=== PATIENT | male | born 1990 | race Caucasian/White ===

== ENCOUNTER 2016-08-20 20:57 | Emergency (ER) | payer SELFPAY ==
[~2016-08-20] VITALS: Ht 180.3 cm; Wt 83.1 kg
[2016-08-20 21:11] VITALS: Ht 180.3 cm; Wt 83.1 kg
[2016-08-20] MEDS ORDERED: LIDOCAINE/EPINEPH/TETRACAINE 1 EA SYR EXT STA (21:47)
[2016-08-20 21:51] VITALS: TEMP 36.9; O2SAT 97
[2016-08-20] MEDS ORDERED: B-CO1CAP17 PO (21:54)
[2016-08-20] MEDS ORDERED: IBUP-1277 PO (21:54)
[2016-08-20] MEDS ORDERED: AMPICILLIN/SULBACTAM SOD INJ 3,000 MG in SODIUM CHLORIDE 0.9% 100ML 100 ML IV ONE (22:00)
[2016-08-20 22:24] LABS: PARTIAL THROMBOPLASTIN RATIO 0.9; PROTHROMBIN TIME (PATIENT) 10.4 SECONDS (9.0-12.0)
[2016-08-20 22:33] LABS: BASO % 0.7 %; BASO ABS # 0.07 K/uL (0-0.2); COMPLETE YES; EOS % 0.3 %; HEMATOCRIT 43.8 % (42-52); IG% 0.2 %; LYMPH ABS # 0.98 K/uL (1.2-3.4); MEAN CELL VOLUME 94.4 fL (80-100); MEAN CORPUSCULAR HEMOGLOBIN 34.3 pg (25-34); MEAN CORPUSCULAR HGB CONC 36.3 g/dl (32-36); MEAN PLATELET VOLUME 11.8 fL (7.4-10.4); MONO % 5.1 %; NEUT % 83.7 %; PLATELET COUNT 100 K/uL (130-400); RED BLOOD COUNT 4.64 M/uL (4.7-6.1); WHITE BLOOD COUNT 9.84 K/uL (4.8-10.8)
[2016-08-20 22:38] LABS: BUN/CREATININE RATIO 9.5 (10-20); CALCIUM 9.3 mg/dl (8.5-10.1); CREATININE 0.91 mg/dl (0.60-1.40); MAGNESIUM 2.2 mg/dl (1.8-2.4); POTASSIUM 4.2 mmol/L (3.5-5.1)
[2016-08-20 22:40] LABS: URINE APPEARANCE CLEAR (CLEAR); URINE COLOR DK YELLOW; URINE NITRITE NEG (NEG); URINE PH >= 9.0 (4.5-7.5); URINE SPECIFIC GRAVITY 1.027 (1.000-1.030); UROBILINOGEN NEG (NEG)
[2016-08-20 22:42] LABS: MANUAL MICROSCOPIC REQUIRED? NO; REVIEW REQ? NO
[2016-08-20 22:44] LABS: SULFASALICYLIC ACID POS (NEG); URINE BILIRUBIN NEG (NEG)
[2016-08-20 22:48] LABS: PHOSPHORUS 1.9 mg/dl (2.5-4.9); THYROID STIMULATING HORMONE 0.87 uIu/ml (0.300-4.500)
--- NOTE | 2016-08-20 22:49 | DIAGNOSTIC IMAGING REPORT ---
CT OF THE HEAD WITHOUT CONTRAST CLINICAL HISTORY: Seizure. Right facial injury COMPARISON STUDY: No previous studies for comparison. TECHNIQUE: Helical axial images of the head were obtained without IV contrast. Automated exposure control was utilized for the study. FINDINGS: No acute intracranial hemorrhage, midline shift or mass effect is present. Ventricular system is normal. Basilar cisterns are patent. There are no extra-axial collections. 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 There are no findings to suggest acute dural sinus thrombosis or acute territorial infarct. There is no calvarial fracture. IMPRESSION: 1. No acute intracranial findings. 2. No calvarial fracture. Electronically signed by: Celso Hallman M.D. 08/20/2016 10:47 PM Dictated Date/Time: 08/20/2016 10:45 PM
--- NOTE | 2016-08-20 22:56 | DIAGNOSTIC IMAGING REPORT ---
MAXILLOFACIAL CT WITHOUT CONTRAST CLINICAL HISTORY: Seizure, facial injury-right side. COMPARISON STUDY: None. TECHNIQUE: A maxillofacial CT was performed without IV contrast. Coronal and sagittal reformats were viewed. FINDINGS: Alignment of the temporomandibular joints is anatomic. The medial left maxillary incisor is absent. There is gas and suspected bone fragments within the socket as well as a fracture of the adjacent maxilla. An overlying deep laceration is noted with soft tissue gas. No additional facial fractures are identified. Globes are intact. There is no retrobulbar hematoma. There is mild mucosal thickening of the sinuses. There is no fracture within visualized portions of the upper cervical spine. IMPRESSION: Absent medial left maxillary incisor with suspected bone fragments within the tooth socket and a fracture of the adjacent maxilla. No additional facial fractures. Overlying deep laceration with soft tissue gas. Electronically signed by: Celso Hallman M.D. 08/20/2016 10:55 PM Dictated Date/Time: 08/20/2016 10:47 PM
[2016-08-20 23:01] LABS: BENZODIAZEPINE, URINE NEG (NEG); COCAINE,URINE POS (NEG); PHENCYCLIDINE, URINE NEG (NEG)
[2016-08-20] MEDS ORDERED: AMOXICIL/CLAVU 875MG HOME PACK PO ONE (23:30)
[2016-08-21] MEDS ORDERED: LIDOCAINE HCL 1% 20 ML VIAL ONE (00:03)
[2016-08-21] MEDS ORDERED: LORAZEPAM 2 MG/ML 1 ML VIAL ONE (00:19)
[2016-08-21] MEDS ORDERED: LORAZEPAM 2 MG/ML 1 ML VIAL IV STA (00:26)
[2016-08-21] MEDS ORDERED: SODIUM CHLORIDE 0.9% 1000ML 1,000 ML IV STA ×3 (00:26→01:56)
[2016-08-21] MEDS ORDERED: LEVETIRACETAM IV 1,000 MG in DEXTROSE 5% 100ML 100 ML IV ONE (00:30)
[2016-08-21] MEDS ORDERED: SODIUM PHOSPHATE 3 MMOL/1 ML INFUSION IV STA (00:37)
--- NOTE | 2016-08-21 01:03 | EMERGENCY ROOM VISIT NOTE ---
ED Visit Note First contact with patient: 21:38 The patient was seen and examined with Carina Dunn PA-C. I agree with the history, physical and findings. Please see the note for disposition and details. The patient had a recurrent seizure in the emergency department. Consultation was made with OMFS and neurology. The patient was started on IV Keppra after a dose of IV Ativan. The patient's phosphorus is low and this is being repleted. He is going to be admitted to the hospital. Consultation was made with internal medicine. Repeat head CT performed.
[2016-08-21] MEDS ORDERED: SODIUM PHOSPHATE INJ 24 MMOL in SODIUM CHLORIDE 0.9% 500ML 500 ML IV ONE (01:15)
[2016-08-21] MEDS ORDERED: AMPICILLIN/SULBACTAM SOD INJ 3,000 MG in SODIUM CHLORIDE 0.9% 100ML 100 ML IV SCH (01:15)
[2016-08-21] MEDS ORDERED: ACETAMINOPHEN 325 MG TAB PO PRN (01:15)
--- NOTE | 2016-08-21 01:58 | EMERGENCY ROOM VISIT NOTE ---
History First contact with patient: 21:38 Chief Complaint: SEIZURE Stated Complaint: SEIZURE BUSTED LIP MISSING TOOTH Nursing Triage Summary: see triage note. last sz was 6 years ago and 10 years before that History of Present Illness The patient is a 26 year old male who presents to the Emergency Room with complaints of seizure tonight. Patient was moving band equipment tonight. He does not recall the events. He's had 3 other seizures throughout his lifetime. He had a negative EEG when he was 10 per pt. Last seizure was several months ago. He is not on antiepileptic medications. He does not have a neurologist. Patient complains of left facial pain, dental pain with dental extraction, mouth lacerations. Pain 5 out of 10. Worse with palpation and better with rest. Patient denies drug use. No alcohol tonight. Patient states he currently drives. Patient denies chest pain, dyspnea, neck pain, abdominal pain , numbness, tingling, eye pain, lightheadedness or dizziness. He brought his tooth with him. Review of Systems See HPI for pertinent positives & negatives. A total of 10 systems reviewed and were otherwise negative. Past Medical/Surgical History Medical Problems: (1) Facial bone fracture (2) Observed seizure-like activity Social History Smoking Status: Current Every Day Smoker Alcohol Use: occasionally Drug Use: cocaine Marital Status: single Housing Status: lives with family Occupation Status: employed Current/Historical Medications Scheduled Ibuprofen (Advil), 400 MG PO PRN UD Vitamin B Cmplx/Vitc/Folic Ac (Nephrocaps), 1 CAP PO DAILY Allergies Coded Allergies: No Known Allergies (Unverified , 08/20/16) Physical Exam Vital Signs Date Time Temp Pulse Resp B/P (MAP) Pulse Ox O2 Delivery O2 Flow Rate FiO2 08/20/16 22:45 94 08/20/16 21:51 97 Room Air 08/20/16 21:51 36.9 98 18 146/93 97 Room Air 08/20/16 21:51 97 Room Air 08/20/16 21:11 36.9 98 18 146/93 97 Room Air Physical Exam PHYSICAL EXAM: VITALS: Vitals are noted on the nurse's note and reviewed by myself. Vital signs stable. GENERAL: Pleasant male answering questions appropriately, in no acute distress, nondiaphoretic, well-developed well-nourished. SKIN: Left facial contusion with abrasion The rest of the skin was without obvious lacerations or abrasions. Capillary reflex less than 2 seconds. HEAD: Normocephalic atraumatic. EARS: External auditory canals clear, tympanic membranes pearly choi without erythema or effusion bilaterally. No hemotympanums. No judge sign. No mastoid tenderness. EYES: Pupils equal round and reactive to light and accommodation. Conjunctivae without injection, sclerae without icterus. Extraocular movements intact. NOSE: Patent, turbinates without inflammation or discharge. No sinus tenderness. No septal hematoma or bleeding. FACE: Left facial bone tenderness. Full range of motion of the jaw without tenderness. MOUTH: Mucous membranes moist. Pharynx without erythema or exudate. Uvula midline. Airway patent. Tongue does not deviate. Dental exam: Left upper maxillary incisor completely missing with left upper lip and bucca mucosa extensive lacerations and lower lip with laceration overall dental hygiene is fair. NECK: Supple without nuchal rigidity. Cervical spine is nontender. Full range of motion of the neck without tenderness. No JVD. HEART: Regular rate and rhythm without murmurs gallops or rubs. LUNGS: Clear to auscultation bilaterally without wheezes, rales or rhonchi. No dullness to percussion. No retractions or accessory muscle use. No chest wall tenderness. ABDOMEN: Positive bowel sounds x 4. Normal tympanic percussion. Soft, nontender, without masses or organomegaly. No guarding or rebound tenderness. MUSCULOSKELETAL: No tenderness of the thoracic or lumbar spine. No tenderness with pelvic rocking. Full range of motion without tenderness to palpation in all extremities. Normal gait. Strength 5/5 throughout. Peripheral pulses 2+. NEURO: Patient was alert and oriented to person place and time. Normal Mini- Mental status exam. Normal sensation to light and sharp touch. Negative Romberg and pronator drift. Cerebellar function intact. No focal neurological deficits. GCS 15 Medical Decision & Procedures Laboratory Results 08/20/16 22:00 Red Blood Count 4.64, Mean Corpuscular Volume 94.4, Mean Corpuscular Hemoglobin 34.3, Mean Corpuscular Hemoglobin Concent 36.3, Mean Platelet Volume 11.8, Neutrophils (%) (Auto) 83.7, Lymphocytes (%) (Auto) 10.0, Monocytes (%) (Auto) 5.1, Eosinophils (%) (Auto) 0.3, Basophils (%) (Auto) 0.7, Neutrophils # (Auto) 8.24, Lymphocytes # (Auto) 0.98, Monocytes # (Auto) 0.50, Eosinophils # (Auto) 0.03, Basophils # (Auto) 0.07 08/20/16 22:00 Test 08/20/16 22:00 08/20/16 22:20 08/21/16 01:23 White Blood Count 9.84 K/uL (4.8-10.8) Red Blood Count 4.64 M/uL (4.7-6.1) Hemoglobin 15.9 g/dL (14.0-18.0) Hematocrit 43.8 % (42-52) Mean Corpuscular Volume 94.4 fL (80-100) Mean Corpuscular Hemoglobin 34.3 pg (25-34) Mean Corpuscular Hemoglobin Concent 36.3 g/dl (32-36) Platelet Count 100 K/uL (130-400) Mean Platelet Volume 11.8 fL (7.4-10.4) Neutrophils (%) (Auto) 83.7 % Lymphocytes (%) (Auto) 10.0 % Monocytes (%) (Auto) 5.1 % Eosinophils (%) (Auto) 0.3 % Basophils (%) (Auto) 0.7 % Neutrophils # (Auto) 8.24 K/uL (1.4-6.5) Lymphocytes # (Auto) 0.98 K/uL (1.2-3.4) Monocytes # (Auto) 0.50 K/uL (0.11-0.59) Eosinophils # (Auto) 0.03 K/uL (0-0.5) Basophils # (Auto) 0.07 K/uL (0-0.2) RDW Standard Deviation 46.3 fL (36.4-46.3) RDW Coefficient of Variation 13.4 % (11.5-14.5) Immature Granulocyte % (Auto) 0.2 % Immature Granulocyte # (Auto) 0.02 K/uL (0.00-0.02) Prothrombin Time 10.4 SECONDS (9.0-12.0) Prothromb Time International Ratio 1.0 (0.9-1.1) Activated Partial Thromboplast Time 24.6 SECONDS (21.0-31.0) Partial Thromboplastin Ratio 0.9 Anion Gap 4.0 mmol/L (3-11) Est Creatinine Clear Calc Drug Dose 128.7 ml/min Estimated GFR () 132.5 Estimated GFR (Non- 114.3 BUN/Creatinine Ratio 9.5 (10-20) Calcium Level 9.3 mg/dl (8.5-10.1) Phosphorus Level 1.9 mg/dl (2.5-4.9) Magnesium Level 2.2 mg/dl (1.8-2.4) Thyroid Stimulating Hormone (TSH) 0.870 uIu/ml (0.300-4.500) Urine Color DK YELLOW Urine Appearance CLEAR (CLEAR) Urine pH >= 9.0 (4.5-7.5) Urine Specific Tyler 1.027 (1.000-1.030) Urine Protein 1+ (NEG) Urine Glucose (UA) NEG (NEG) Urine Ketones TRACE (NEG) Urine Occult Blood NEG (NEG) Urine Nitrite NEG (NEG) Urine Bilirubin NEG (NEG) Urine Urobilinogen NEG (NEG) Urine Leukocyte Esterase TRACE (NEG) Urine WBC (Auto) 1-5 /hpf (0-5) Urine RBC (Auto) 0-4 /hpf (0-4) Urine Hyaline Casts (Auto) 1-5 /lpf (0-5) Urine Epithelial Cells (Auto) 5-10 /lpf (0-5) Urine Bacteria (Auto) NEG (NEG) Urine Opiates Screen NEG (NEG) Urine Methadone, Qualitative NEG (NEG) Urine Barbiturates NEG (NEG) Urine Phencyclidine (PCP) Level NEG (NEG) Ur Amphetamine/Methamphetamine NEG (NEG) MDMA (Ecstasy) Screen NEG (NEG) Urine Benzodiazepines Screen NEG (NEG) Urine Cocaine Metabolite POS (NEG) Urine Marijuana (THC) NEG (NEG) Medications Administered Medications (Trade) Dose Ordered Sig/Angelica Route Start Time Stop Time Status Last Admin Dose Admin Tetracaine/ Epinephrine/ Lidocaine (L.e.t. Gel 4%/ 1:100/0.5%) 1 ea NOW STAT EXT 08/20/16 21:47 08/20/16 21:50 DC 08/20/16 22:05 1 EA Ampicillin Sodium/ Sulbactam Sodium 3000 mg/Sodium Chloride 108 ml @ 200 mls/hr ONE ONCE IV 08/20/16 22:00 08/20/16 22:32 DC 08/20/16 22:20 200 MLS/HR Levetiracetam 1000 mg/Dextrose 110 ml @ 440 mls/hr ONE ONCE IV 08/21/16 00:30 08/21/16 00:44 DC 08/21/16 00:44 440 MLS/HR Lorazepam (Ativan Inj) 1 mg NOW STAT IV 08/21/16 00:26 08/21/16 00:28 DC 08/21/16 00:21 1 MG Sodium Chloride 1,000 ml @ 999 mls/hr Q1H1M STAT IV 08/21/16 00:26 08/21/16 01:26 DC 08/21/16 00:39 999 MLS/HR Sodium Chloride 1,000 ml @ 125 mls/hr Q8H STAT IV 08/21/16 00:26 08/21/16 08:25 08/21/16 01:00 125 MLS/HR Sodium Phosphate 24 mmol/Sodium Chloride 508 ml @ 88 mls/hr NOW ONCE IV 08/21/16 01:15 08/21/16 07:01 08/21/16 01:26 88 MLS/HR Procedure Location: mouth Total length: 4cm, jagged Complexity: complex Verbal consent was obtained after the risks and benefits were explained, including but not limited to bleeding, scarring, infection, pain, and bone/joint /nerve damage. At this time, the risks of the procedure are less than the risks of NOT performing the procedure. A time out was taken and the correct patient and site identified. The skin was prepped with betadine. The target area was anesthetized with LET and 4 ml of 1% lidocaine without epinephrine. Copious irrigation was performed using NSS. The skin was re-prepped with betadine and a sterile field set. The wound was explored for foreign bodies and none found. Examination revealed no injury to deep structures such as tendons, bone, or significant blood vessels. Debridement was not performed. The wound edges were approximated using 5, 12-0 simple interrupted Vicryl sutures. Hemostasis and excellent approximation was achieved. Antibacterial ointment and a sterile dressing applied. Detailed wound care instructions and signs and symptoms of infection reviewed with the pt. No complications and the patient tolerated the procedure well. Location: Lower mouth Total length: 3cm Complexity: Simple Verbal consent was obtained after the risks and benefits were explained, including but not limited to bleeding, scarring, infection, pain, and bone/joint /nerve damage. At this time, the risks of the procedure are less than the risks of NOT performing the procedure. A time out was taken and the correct patient and site identified. The skin was prepped with betadine. The target area was anesthetized with 2 ml of 1% lidocaine without epinephrine. Copious irrigation was performed using NSS. The skin was re-prepped with betadine and a sterile field set. The wound was explored for foreign bodies and none found. Examination revealed no injury to deep structures such as tendons, bone, or significant blood vessels. Debridement was not performed. The wound edges were approximated using 4, 5-0 simple interrupted nylon sutures. Hemostasis and excellent approximation was achieved. Antibacterial ointment and a sterile dressing applied. Detailed wound care instructions and signs and symptoms of infection reviewed with the pt. No complications and the patient tolerated the procedure well. ED Course Prior records/ancillary studies reviewed. Patient placed in seizure precautions immediately upon arrival. Nursing notes reviewed. Additional history obtained from nursing The patient's history was concerning for a possible seizure. Differential diagnosis: Etiologies such as infection, hypoglycemia, electrolyte abnormalities, cardiac sources, intracerebral event, trauma, toxicologic, neurologic, as well as others were entertained. Physical examination: As above. No signs of trauma. ER treatment provided: Lacerations repaired as above. Unasyn, Keppra, IV fluids, Ativan and phosphorus On reassessment the patient felt better. Diagnostics interpretation by me: ECG: Normal sinus, normal intervals, no acute ST-T wave changes. Impression normal sinus rhythm interpreted by myself The labs revealed positive cocaine. Hypophosphatemia and this is replaced Patient consented to HIV and hepatitis testing; no known prior disease. Imaging studies: Original head CT was negative for intracranial bleed. Facial CT concerning for left maxilla fracture Repeat CAT scan after repeat seizure showed new small curved linear high density in the left perimesencephalic cistern area concerns for thrombosed vessel or trace hemorrhage. Consultation: A consultation was placed with the neurologist, Dr. Baez. The case was discussed and diagnostics were reviewed. Recommends Keppra and MRI. CT scan came back after consultation with Dr. Baez and showed possible intracranial bleed. I consulted [place] trauma and Dr. Henderson accepts transfer of this patient. Patient is agreeable to transfer to [place] for neurosurgical evaluation and trauma protocol. Transfer paperwork was filled out. Patient was transferred via ALS. I also consulted Dr. Gamez over facial injuries and states there is nothing to do with the extracted tooth and to follow-up with a dentist when he returns on the [employer]. Exam and history seem consistent with seizure with head trauma mouth injury and facial fracture. Repeat CAT scan shows concern for intracranial hemorrhage. Patient be transferred to [place] for neurosurgical evaluation. Trauma team was alerted. Patient was neurovascularly and neurologically intact. GCS of 15. Patient had a facial fracture and dental injury and multiple mouth lacerations repaired as above. He is given antibiotics, Keppra, Ativan and IV fluids. Phosphorus was replaced. I spoke to patient's mother per request and all questions are answered. Patient was reassessed multiple times. After I finished suturing the patient's mouth he then seized for a few minutes and then was externally combative for another 5 minutes and was given Ativan. Because of the patient's combativeness which was new repeat head CT was ordered. This is concerning for intracranial bleed. I consulted [place] trauma team for possible transfer. Patient was transferred there. Patient no other medical complaints. GCS was still 15. He was still neurovascularly and neurologically intact. The patient was counseled not to drive until cleared in follow-up and seizure precautions given. I gave my usual and customary discussion regarding these issues. 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 The pt informed about the findings as listed above. All questions were answered and pleased with the treatment. Case reviewed with my attending Medical Decision as above Impression Primary Impression: Intracranial hemorrhage Additional Impressions: Seizure Cocaine abuse Maxillary fracture Laceration of oral cavity Lip laceration Hypophosphatemia Head injury Critical Care I have personally spent greater than 30 minutes of critical care time in the direct management of this patient. This includes bedside care, interpretation of diagnostic studies, and testing, discussion with consultants, patient, and family members, and other required patient management activities. This 30 minutes is in excess of all separately billable procedures. Departure Information Dispostion Transfer Acute Care Facility Condition [facility]IR Referrals No Doctor, Assigned (PCP) Patient Instructions My [facility] Problem Qualifiers
[2016-08-21 02:01] VITALS: BP 135/76
[2016-08-21 02:12] VITALS: PULSE 95; O2SAT 98
--- NOTE | 2016-08-21 06:55 | DIAGNOSTIC IMAGING REPORT ---
HEAD CT NONCONTRAST CT DOSE: 537.48 mGy.cm HISTORY: Headache CANALES, more seizures/combative TECHNIQUE: Multiaxial CT images of the head were performed without the use of intravenous contrast. Comparison: 08/20/2016 Findings: The paranasal sinuses and mastoid air cells are clear. Trace high density blood adjacent to and/or involving the left quadrigeminal plate cistern. Slight increase in density posterior interhemispheric fissure region. Density characteristics are unremarkable. No midline shift. Impression: Trace blood adjacent to and/or involving left quadrigeminal plate cistern. No mass effect. Electronically signed by: Gordon Ann M.D. 08/21/2016 6:54 AM Dictated Date/Time: 08/21/2016 6:50 AM
[2016-08-21] MEDS ORDERED: LEVETIRACETAM 500 MG TAB PO SCH (09:00)
[2016-08-24 14:39] LABS: COCAINE, URINE 27000 NG/ML (CUTOFF=100)
== END 2016-08-21 02:25 | disposition short-term general hospital (02) ==
LOC: C.EDB 21:00 → ENRESERV 08-21 01:23 → CANRESERV 08-21 01:23 → CANBEDREQ 08-21 01:37 → C.EDA 08-21 02:25
DX: S06.2X0A Diffuse traumatic brain injury without loss of consciousness, initial encounter (principal); G40.909 Epilepsy, unspecified, not intractable, without status epilepticus; F14.10 Cocaine abuse, uncomplicated; S02.401A Maxillary fracture, unspecified side, initial encounter for closed fracture; S01.512A Laceration without foreign body of oral cavity, initial encounter; S01.511A Laceration without foreign body of lip, initial encounter; E83.39 Other disorders of phosphorus metabolism; Z79.899 Other long term (current) drug therapy; F17.200 Nicotine dependence, unspecified, uncomplicated; Z87.828 Personal history of other (healed) physical injury and trauma